=== PATIENT | male | born 1980 | race Caucasian/White ===

== ENCOUNTER 2018-03-14 10:36 | Emergency (ER) | payer OTHER | END 2018-03-14 11:08 | disposition home or self-care (01) | LOC: EDH 10:36 | DX: S62.395D Other fracture of fourth metacarpal bone, left hand, subsequent encounter for fracture with routine healing (principal); K21.9 Gastro-esophageal reflux disease without esophagitis; X58.XXXD Exposure to other specified factors, subsequent encounter | CPT/HCPCS: 99281 ==

== ENCOUNTER 2020-01-05 09:51 | Emergency (ER) | payer OTHER ==
[2020-01-05] MEDS ORDERED: ACETAMINOPHEN EXTRA STRENGTH 500 MG TABLET ONE (10:18)
== END 2020-01-05 11:01 | disposition home or self-care (01) ==
LOC: EDH 09:51
DX: S20.212A Contusion of left front wall of thorax, initial encounter (principal); K21.9 Gastro-esophageal reflux disease without esophagitis; Z72.0 Tobacco use; Z98.890 Other specified postprocedural states; X58.XXXA Exposure to other specified factors, initial encounter; Y93.89 Activity, other specified; Y92.89 Other specified places as the place of occurrence of the external cause; Y99.8 Other external cause status
CPT/HCPCS: 71046

== ENCOUNTER 2024-07-15 17:02 | Inpatient (IN) | payer SELFPAY ==
[~2024-07-15] VITALS: Ht 172.7 cm; Wt 88.3 kg
[2024-07-15] MEDS ORDERED: ASPIRIN 325MG TAB PO ONE (17:30)
[2024-07-15 17:41] LABS: BASOPHILS # (AUTO) 0.05 K/uL (0.00-0.20); BASOPHILS % (AUTO) 0.4 % (0.0-5.0); EOSINOPHILS # (AUTO) 0.22 K/uL (0.00-0.70); EOSINOPHILS % (AUTO) 1.9 % (0.0-8.0); IMMATURE GRANULOCYTE ABSOLUTE 0.04 K/uL (0-1); LYMPHOCYTES # (AUTO) 2.4 K/uL (1.0-4.8); LYMPHOCYTES % (AUTO) 20.8 % (21.0-51.0); MEAN CORPUSCULAR HEMOGLOBIN 38.4 pg (27.0-33.0); MEAN CORPUSCULAR HGB CONC 36.2 g/dL (32.0-36.0); MEAN CORPUSCULAR VOLUME 106.2 fL (79-99); MONOCYTES # (AUTO) 0.9 K/uL (0.1-1.0); MONOCYTES % (AUTO) 8.3 % (3.0-13.0); NEUTROPHILS # (AUTO) 7.7 K/uL (1.8-7.7); NEUTROPHILS % (AUTO) 68.2 % (40.0-77.0); PLATELET COUNT (AUTO) 229 K/uL (130-400); RED BLOOD CELL COUNT(AUTO) 4.71 MIL/uL (4.50-6.20); RED CELL DISTRIBUTION WIDTH 14.5 % (11.0-15.5); WHITE BLOOD COUNT (AUTO) 11.3 K/uL (4.8-10.8)
[2024-07-15 17:58] LABS: BILIRUBIN,DIRECT 0.3 mg/dL (0.0-0.3); TOTAL PROTEIN, SERUM 7.2 g/dL (6.0-8.3)
[2024-07-15 18:03] LABS: B-TYPE NATRIURETIC PEPTIDE 34 pg/mL (0-100)
[2024-07-15] MEDS: NITROGLYCERIN 1GM OINT 1 INCH/1GM TD ONE (18:29)
[2024-07-15] MEDS: ASPIRIN 81MG CHEW TAB PO ONE (18:32)
[2024-07-15] MEDS: PoTASSium BIcarbonate/CIT AC 25 MEQ TABLET.EFF PO ONE (18:32)
[2024-07-15] MEDS: hydrALAZine 20MG/ML VIAL IV PRN (22:06)
[2024-07-15 22:30] LABS: APPEARANCE,URINE CLEAR (CLEAR); BILIRUBIN,URINE NEGATIVE (NEGATIVE); COLOR,URINE YELLOW (YELLOW); GLUCOSE, URINE (UA) NEGATIVE (NEGATIVE); KETONES,URINE NEGATIVE (NEGATIVE); LEUKOCYTE ESTERASE ,URINE NEGATIVE Leu/uL (NEGATIVE); NITRATE,URINE NEGATIVE (NEGATIVE); OCCULT BLOOD,URINE NEGATIVE (NEGATIVE); PH,URINE 7.5 (5.0-8.0); PROTEIN,URINE 20 mg/dL (NEGATIVE)
[2024-07-15 22:38] LABS: ADD UA MICROSCOPIC NO; AMPHET/METH SCREEN,URINE NEGATIVE (NEGATIVE); BACTERIA,URINE None Seen /HPF (None Seen); BARBITURATE SCREEN, URINE NEGATIVE (NEGATIVE); BENZODIAZEPINES SCREEN,URINE NEGATIVE (NEGATIVE); CANNABINOID SCREEN,URINE NEGATIVE (NEGATIVE); COCAINE SCREEN,URINE NEGATIVE (NEGATIVE); OPIATE SCREEN,URINE NEGATIVE (NEGATIVE); PHENCYCLIDINE SCREEN,URINE NEGATIVE (NEGATIVE); SQUAMOUS EPITHELIAL CELL,UR Rare /HPF (0-2)
[2024-07-15] MEDS ORDERED: acetaMINOPHEN 325 MG TAB PO PRN (23:00)
[2024-07-15] MEDS ORDERED: ondanSETRON 4MG INJ IV PRN (23:00)
[2024-07-15] MEDS ORDERED: ketOROlac 15MG/ML VIAL (15MG/ML) IV PRN (23:00)
[2024-07-15] MEDS ORDERED: NITROGLYCERIN 0.4 MG SL TAB SL PRN (23:00)
[2024-07-15] MEDS ORDERED: PoTASSium chl 10% ELIXIR 20MEQ 20 MEQ/15 ML UDCUP PO PRN (23:30)
[2024-07-16] VITALS (9 sets, daily range): BP systolic 147–172; BP diastolic 73–109; PULSE 62–76; RESP 17–20; TEMP 97.6–98.7; O2SAT 98–99
[2024-07-16] MEDS: hydrALAZine 20MG/ML VIAL IV ONE (00:10)
[2024-07-16] MEDS: acetaMINOPHEN 325 MG TAB PO PRN (02:30)
[2024-07-16 03:34] LABS: BASOPHILS # (AUTO) 0.05 K/uL (0.00-0.20); BASOPHILS % (AUTO) 0.5 % (0.0-5.0); EOSINOPHILS # (AUTO) 0.24 K/uL (0.00-0.70); EOSINOPHILS % (AUTO) 2.4 % (0.0-8.0); HEMATOCRIT 44.4 % (42-54); IMMATURE GRANULOCYTE ABSOLUTE 0.05 K/uL (0-1); LYMPHOCYTES # (AUTO) 2.4 K/uL (1.0-4.8); LYMPHOCYTES % (AUTO) 23.7 % (21.0-51.0); MEAN CORPUSCULAR HEMOGLOBIN 38.2 pg (27.0-33.0); MEAN CORPUSCULAR HGB CONC 35.4 g/dL (32.0-36.0); MONOCYTES # (AUTO) 1.1 K/uL (0.1-1.0); MONOCYTES % (AUTO) 10.9 % (3.0-13.0); NEUTROPHILS # (AUTO) 6.3 K/uL (1.8-7.7); PLATELET COUNT (AUTO) 213 K/uL (130-400); RED BLOOD CELL COUNT(AUTO) 4.11 MIL/uL (4.50-6.20); RED CELL DISTRIBUTION WIDTH 14.6 % (11.0-15.5); WHITE BLOOD COUNT (AUTO) 10.1 K/uL (4.8-10.8)
[2024-07-16 03:50] LABS: HEMOGLOBIN A1C 4.9 % (4.0-6.0)
[2024-07-16 03:54] LABS: ALBUMIN 3.2 g/dL (3.5-5.0); BILIRUBIN,TOTAL 0.9 mg/dL (0.2-1.0); MAGNESIUM 1.7 mg/dL (1.80-2.40); THYROID STIMULATING HORMONE 2.52 uIU/mL (0.36-3.74); TOTAL PROTEIN, SERUM 5.9 g/dL (6.0-8.3)
[2024-07-16 04:40] LABS: POTASSIUM 2.8 mmol/L (3.5-5.1)
[2024-07-16] MEDS: LAbetaLOL 20MG SYG IV ONE ×2 (04:46→04:48)
[2024-07-16] MEDS: PoTASSium chloRIDE 20MEQ/100ML 100 ML IV PRN (04:48)
[2024-07-16] MEDS: PoTASSium chloRIDE 20MEQ ER 20 MEQ ERTAB PO PRN (05:00)
[2024-07-16] MEDS ORDERED: OMEP20TA20 PO (06:49)
[2024-07-16] MEDS: amLODIPine 5 MG TAB PO SCH (09:01)
[2024-07-16] MEDS: ASPIRIN 81 MG EC TAB PO SCH (09:01)
[2024-07-16] MEDS: FAMOTIDINE 20MG TAB PO SCH (09:01)
[2024-07-16] MEDS: metoPROLOL tartRATE 25 MG TAB PO ONE (09:32)
[2024-07-16] MEDS: hydrALAZine 20MG/ML VIAL IV PRN (11:58)
[2024-07-16] MEDS: metoCLOPRAmide 10 MG/2 ML VIAL ONE (12:38)
[2024-07-16] MEDS ORDERED: IOHEXOL 350 MG/ML 100ML INFUS..BTL IV ONE (12:41)
[2024-07-16] MEDS ORDERED: metoPROLOL tartRATE 1 MG/ML 5ML VIAL IV ONE (12:50)
[2024-07-16] MEDS: PoTASSium chloRIDE 20MEQ ER 20 MEQ ERTAB PO ONE (16:44)
[2024-07-17 00:22] VITALS: BP 161/97; PULSE 63; RESP 20; TEMP 98.6
[2024-07-17] MEDS: amLODIPine 5 MG TAB PO SCH (04:43)
[2024-07-17] MEDS: PoTASSium chloRIDE 20MEQ ER 20 MEQ ERTAB PO ONE (04:43)
[2024-07-17 04:47] VITALS: BP 152/103; PULSE 69; RESP 18; TEMP 98.4
[2024-07-17 04:51] LABS: BASOPHILS # (AUTO) 0.05 K/uL (0.00-0.20); BASOPHILS % (AUTO) 0.5 % (0.0-5.0); EOSINOPHILS # (AUTO) 0.21 K/uL (0.00-0.70); EOSINOPHILS % (AUTO) 2.3 % (0.0-8.0); HEMATOCRIT 48.4 % (42-54); IMMATURE GRANULOCYTE ABSOLUTE 0.04 K/uL (0-1); LYMPHOCYTES # (AUTO) 2.1 K/uL (1.0-4.8); MEAN CORPUSCULAR HEMOGLOBIN 38.2 pg (27.0-33.0); MEAN CORPUSCULAR HGB CONC 35.3 g/dL (32.0-36.0); MONOCYTES # (AUTO) 0.9 K/uL (0.1-1.0); MONOCYTES % (AUTO) 9.3 % (3.0-13.0); NEUTROPHILS % (AUTO) 64.5 % (40.0-77.0); PLATELET COUNT (AUTO) 214 K/uL (130-400); RED BLOOD CELL COUNT(AUTO) 4.48 MIL/uL (4.50-6.20); RED CELL DISTRIBUTION WIDTH 14.6 % (11.0-15.5); WHITE BLOOD COUNT (AUTO) 9.2 K/uL (4.8-10.8)
[2024-07-17 05:08] LABS: ALBUMIN 3.4 g/dL (3.5-5.0); BILIRUBIN,TOTAL 1.2 mg/dL (0.2-1.0); MAGNESIUM 1.8 mg/dL (1.80-2.40); POTASSIUM 4.1 mmol/L (3.5-5.1); TOTAL PROTEIN, SERUM 6.5 g/dL (6.0-8.3)
[2024-07-17] MEDS: MAGNESIUM 2GM PREMIX 50ML 50 ML IV PRN (05:18)
[2024-07-17 08:00] VITALS: BP 158/108; PULSE 86; RESP 16; TEMP 97.9
[2024-07-17] MEDS: LoSARTan 25 MG TABLET PO SCH (09:08)
[2024-07-17 12:00] VITALS: BP 172/110; PULSE 67; RESP 16; TEMP 98
[2024-07-17] MEDS ORDERED: AEC81 PO (13:32)
[2024-07-17] MEDS ORDERED: AMLO5TAB4 PO (13:32)
[2024-07-17] MEDS ORDERED: LOSA-417 PO (13:32)
[2024-07-17] MEDS ORDERED: FAMO20TA8 PO (13:32)
== END 2024-07-17 14:35 | disposition home or self-care (01) | DRG 305 ==
LOC: EDH 17:02 → EDHIP 17:03 → 4CH 07-16 01:09
PROVIDERS: ADMIT Internal Medicine; ATTEND Internal Medicine
DX: I16.1 Hypertensive emergency (principal); E87.1 Hypo-osmolality and hyponatremia; E87.6 Hypokalemia; K76.0 Fatty (change of) liver, not elsewhere classified; E83.42 Hypomagnesemia; D64.9 Anemia, unspecified; K21.9 Gastro-esophageal reflux disease without esophagitis; E88.09 Other disorders of plasma-protein metabolism, not elsewhere classified; I10 Essential (primary) hypertension; D72.829 Elevated white blood cell count, unspecified; E87.8 Other disorders of electrolyte and fluid balance, not elsewhere classified; F17.210 Nicotine dependence, cigarettes, uncomplicated; I25.2 Old myocardial infarction
CPT/HCPCS: 36415; 71045; 75574; 76705; 80048; 80053; 80061; 80076; 80305; 81003; 82088; 82550; 83036; 83735; 83880; 84244; 84443; 84484; 85025; 93005; 93306; 96374; G0378; J0360; J2765; J3475; J3480; J3490; Q9967